=== PATIENT | male | born 1990 | race Caucasian/White ===

== ENCOUNTER 2018-10-06 16:53 | Emergency (ER) | payer OTHER, SELFPAY ==
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
[2018-10-06 18:56] LABS: Urine Blood 1+ (NEG); Urine Glucose NEGATIVE (NEG); Urine Protein NEGATIVE (NEG); Urine Specific Gravity 1.015 (1.005-1.030)
[2018-10-06 19:02] LABS: Absolute Lymphocytes (CBC) 1.2 K/uL (0.7-4.9); Basophils % 0.2 % (0-1.3); Hematocrit 40.5 % (39.6-49.0); Lymphocytes % 7.8 % (15.3-44.8); MPV 7.7 fL (7.6-11.3); RBC Red Blood Cell Count 4.71 M/uL (4.33-5.43)
[2018-10-06 19:07] LABS: Protime INR 0.96
[2018-10-06 19:10] LABS: Barbiturates NEGATIVE (NEGATIVE); Benzodiazepines NEGATIVE (NEGATIVE); Cocaine NEGATIVE (NEGATIVE); METHAMPHETAM NEGATIVE (NEGATIVE); Methadone NEGATIVE (NEGATIVE); Opiates NEGATIVE (NEGATIVE); Phencyclidine NEGATIVE (NEGATIVE); THC Cannibis NEGATIVE (NEGATIVE)
[2018-10-06 19:22] LABS: Albumin 4.2 g/dL (3.4-5.0); Bilirubin Direct 0.2 mg/dL (0-0.2); Bilirubin Total 0.5 mg/dL (0.2-1.0); Potassium 3.8 mmol/L (3.5-5.1); Protein, Total 7.3 g/dL (6.4-8.2)
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
[2018-10-06] MEDS ORDERED: FENTANYL CITR 100 MCG/2 ML ONE (19:27)
[2018-10-06 19:40] LABS: Blood Morphology Comment NOT SEEN (NOT SEEN); Platelet Estimate ADEQ; Urine White Blood Cell Casts OK
--- NOTE | 2018-10-07 07:40 | EKG ---
Test Date: 2018-10-06 Test Time: 17:13:38 Photo Tech: GORDON MEASUREMENT RESULTS: Intervals: Rate: 113 [place]: 140 QRSD: 84 QT: 324 QTc: 444 [place]: P: 79 [place]: 140 QRS: 87 T: 68 INTERPRETIVE STATEMENTS: Sinus tachycardia Right atrial enlargement Borderline ECG No previous ECG available for comparison Electronically Signed On 10-07-18 07:39:47 CDT by David Ayala
== END 2018-10-06 19:43 | disposition home or self-care (01) ==
LOC: ER 16:53
DX: G89.11 Acute pain due to trauma (principal); V47.5XXA Car driver injured in collision with fixed or stationary object in traffic accident, initial encounter; F17.210 Nicotine dependence, cigarettes, uncomplicated; Z88.0 Allergy status to penicillin
CPT/HCPCS: 36415; 70450; 71045; 72125; 72170; 80048; 80076; 80307; 80320; 81003; 85025; 85610; 85730; 93005; 96361; 96374; 99285; J3010

== ENCOUNTER 2018-11-01 15:08 | Emergency (ER) | payer BC, OTHER ==
[2018-11-01] MEDS ORDERED: LIDOCAINE 1% MPF 5 ML VIAL ONE (15:42)
[2018-11-01] MEDS ORDERED: DERMABOND SKIN ADHESIVE TOP ONE (15:43)
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
[2018-11-01 15:51] LABS: Absolute Lymphocytes (CBC) 1.3 K/uL (0.7-4.9); Basophils % 0.5 % (0-1.3); Hematocrit 39.6 % (39.6-49.0); Lymphocytes % 14.2 % (15.3-44.8); MPV 7.9 fL (7.6-11.3); RBC Red Blood Cell Count 4.61 M/uL (4.33-5.43)
[2018-11-01 16:13] LABS: Potassium 3.7 mmol/L (3.5-5.1)
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
== END 2018-11-01 17:37 | disposition home or self-care (01) ==
LOC: ER 15:08
PROC: 0CQ1XZZ Repair Lower Lip, External Approach (ICD-10-PCS; principal; 2018-11-01)
DX: S01.511A Laceration without foreign body of lip, initial encounter (principal); V49.40XA Driver injured in collision with unspecified motor vehicles in traffic accident, initial encounter; Z72.0 Tobacco use; Z88.5 Allergy status to narcotic agent
CPT/HCPCS: 85025; 80048; 36415; 86900; 86850; 86901; 70450; 72125; 71260; 70486; 76377; 74177; 99285; 12013; Q9967